=== PATIENT | female | born 1975 | race Hispanic/Latino ===

== ENCOUNTER 2022-12-23 14:42 | Emergency (ER) | payer OTHER ==
[2022-12-23] MEDS ORDERED: KETOROLAC 30MG VIAL (30MG/ML) IM ONE (16:00)
[2022-12-23] MEDS ORDERED: KETOROLAC 60 MG VIAL (30MG/ML) IM ONE (16:08)
[2022-12-23] MEDS ORDERED: PRED20TA3 PO (19:06)
[2022-12-23] MEDS ORDERED: METH-811 PO (19:06)
[2022-12-23] MEDS ORDERED: IBUP-2070 PO (19:06)
[2022-12-23 19:23] VITALS: BP 146/86; PULSE 84; RESP 16; O2SAT 100
== END 2022-12-23 19:32 | disposition home or self-care (01) ==
LOC: EDH 14:42
DX: S16.1XXA Strain of muscle, fascia and tendon at neck level, initial encounter (principal); S46.811A Strain of other muscles, fascia and tendons at shoulder and upper arm level, right arm, initial encounter; Z98.890 Other specified postprocedural states; Z88.8 Allergy status to other drugs, medicaments and biological substances; X58.XXXA Exposure to other specified factors, initial encounter; Y93.89 Activity, other specified; Y92.89 Other specified places as the place of occurrence of the external cause; Y99.8 Other external cause status
CPT/HCPCS: 99285; 72125; 81025; 73090; 96372; J1885

== ENCOUNTER 2023-04-27 17:23 | Emergency (ER) | payer OTHER ==
[~2023-04-27] VITALS: Ht 152.4 cm; Wt 73.5 kg
[~2023-04-27 17:23] MED LIST: IBUP-2070 PO; METH-811 PO; PRED20TA3 PO
[2023-04-27] MEDS ORDERED: IBUP-2070 PO (21:47)
[2023-04-27] MEDS ORDERED: AMOX1TAB16 PO (21:47)
[2023-04-27] MEDS ORDERED: CORTSOL AD (21:47)
[2023-04-27 21:55] VITALS: BP 118/61; PULSE 76; RESP 18; O2SAT 100
[2023-04-27] MEDS ORDERED: AMOX/CLAV 875/125MG TAB PO ONE (22:00)
[2023-04-27] MEDS ORDERED: KETOROLAC 30MG VIAL (30MG/ML) IM ONE (22:00)
[2023-04-27] MEDS: AMOX/CLAV 875/125MG TAB PO ONE (22:09)
[2023-04-27] MEDS: KETOROLAC 30MG VIAL (30MG/ML) ONE (22:09)
== END 2023-04-27 22:13 | disposition home or self-care (01) ==
LOC: EDH 17:23
DX: H66.91 Otitis media, unspecified, right ear (principal); H92.01 Otalgia, right ear; Z79.899 Other long term (current) drug therapy; Z98.890 Other specified postprocedural states
CPT/HCPCS: 99283; 96372; J1885